=== PATIENT | female | born 1975 | race Hispanic/Latino ===

== ENCOUNTER 2017-01-31 13:05 | Emergency (ER) | payer OTHER, SELFPAY ==
[2017-01-31 13:33] LABS: #Eosinphils 0.1 thou/uL (0.0-0.7); #Lymphocytes 2.3 thou/uL (1.20-3.40); #Monocytes 0.5 thou/uL (0.11-0.59); #Neutrophils 8.3 thou/uL (1.40-6.50); %Basophils 0.4 % (0.0-1.0); %Eosinophils 1.1 % (0.0-10.0); %Lymphocytes 20.5 % (21.0-51.0); %Monocytes 4.6 % (0.0-10.0); %Neutrophils 73.4 % (42.0-75.0); Hemoglobin 12.4 g/dL (12.0-16.0); Mean Corpuscular HGB CONC 32.8 g/dL (32.0-36.0); Mean Corpuscular Hemoglobin 28.2 pg (27.0-31.0); Mean Corpuscular Volume 85.8 fl (81.0-99.0); Mean Platelet Volume 8.1 fL (7.4-10.4); Platelet Count 358 thou/uL (130-400); RBC Distribution Width 12.5 % (11.5-14.5); White Blood Cell (WBC) Count 11.4 thou/uL (4.8-10.8)
[2017-01-31] MEDS ORDERED: Labetalol HCl 100 MG/20 ML VIAL ONE (13:35)
[2017-01-31 13:50] LABS: ALT (SGPT) 23 U/L (8-55); AST (SGOT) 19 U/L (5-34); Albumin 3.7 g/dL (3.5-5.0); Alkaline Phosphatase 102 U/L (40-150); Anion Gap 13 mmol/L (10-20); BUN (Urea Nitrogen) 8 mg/dL (7.0-18.7); Bilirubin, Total 0.8 mg/dL (0.2-1.2); Calc. Creatinine Clearance 0 mL/min (70-130); Calcium 8.7 mg/dL (7.8-10.44); Carbon Dioxide 23 mmol/L (22-29); Chloride 105 mmol/L (98-107); Estimated GFR-MDRD 88; Globulin 3.6 g/dL (2.4-3.5); Glucose 166 mg/dL (70-105); Potassium 3.6 mmol/L (3.5-5.1); Protein, Total 7.3 g/dL (6.0-8.3); Sodium 137 mmol/L (136-145)
[2017-01-31 13:51] LABS: CKMB 0.7 ng/mL (0-6.6); Troponin I Less than 0.010 ng/mL (< 0.028)
[2017-01-31] MEDS ORDERED: Ketorolac Tromethamine 30 MG/ML VIAL ONE (14:30)
--- NOTE | 2017-01-31 17:40 | CT ---
CT OF THE BRAIN WITHOUT CONTRAST 01/31/17 A noncontrast study was performed. There is streak artifact throughout the lower half of the images that degrades the quality somewhat. This may be motion artifact. The ventricles are normal in size with no shift. No intracranial bleeding or extra-axial hematoma wa s seen. There was no sign of mass, edema, or stroke. The calvarium appears normal. The visible paran sangeeta sinuses and mastoid air cells are clear. IMPRESSION: Slightly reduced sensitivity study showing no acute findings. POS: HOME
--- NOTE | 2017-01-31 17:44 | RAD ---
PORTABLE CHEST 01/31/17 An AP portable film at 1323 is compared with a 01/18/15 study done at [facility]. There has been no adverse interval change. The heart is normal in size and the lungs are clear. No i nfiltrate or effusion was seen. There are no congestive changes. The trachea is midline. IMPRESSION: No acute thoracic findings. POS: HOME
--- NOTE | 2017-01-31 17:49 | CT ---
CT ANGIO OF THE CHEST 01/31/17 A bolus of IV contrast was given and axial slices were acquired. A series of reformations were done through the arteries afterwards. Unfortunately, the timing of the bolus was suboptimal. Most of the bolus is in the left circulation and so the pulmonary arteries were not well opacified. There is no gross clot in the proximal most portions of the right and left pulmonary artery or the m ain pulmonary artery. Much beyond this, the contrast column becomes too dilute and the study becomes indeterminate. There is no sign of aortic aneurysm or dissection. The coronary arteries are filling and do not appear to have substantial calcification. There is no sign of pericardial fluid. No medi astinal mass or hematoma was seen. The lungs are clear. No nodules, infiltrates, or effusions were seen. Scans into the upper abdomen show some prominence to the size of the patient's liver. It is somewhat low in density which could signify fatty infiltration. The spleen is normal in size. The visible po rtions of the pancreas were normal. There is no evidence of adrenal mass. IMPRESSION: 1. Indeterminate study for pulmonary embolism. 2. No acute thoracic findings. 3. Mildly prominent hepatic size and possibly fatty infiltration. POS: HOME
== END 2017-01-31 15:40 | disposition home or self-care (01) ==
LOC: BURERS 13:05
DX: F41.9 Anxiety disorder, unspecified (principal); I10 Essential (primary) hypertension
CPT/HCPCS: 70450; 71010; 71275; 80053; 82553; 84484; 85025; 85379; 93005; 94760; 96374; 96375; J1885

== ENCOUNTER 2019-06-24 10:48 | Emergency (ER) | payer SELFPAY ==
[2019-06-24 11:24] LABS: Hemoglobin 11.6 g/dL (12.0-16.0); Mean Corpuscular HGB CONC 30.4 g/dL (32.0-36.0); Mean Corpuscular Hemoglobin 24.6 pg (27.0-31.0); Mean Platelet Volume 8.2 fL (7.4-10.4); Platelet Count 423 thou/uL (130-400); RBC Distribution Width 13.9 % (11.5-14.5); Red Blood Cell (RBC) Count 4.71 mill/uL (4.20-5.40); White Blood Cell (WBC) Count 10.8 thou/uL (4.8-10.8)
[2019-06-24] MEDS ORDERED: Aspirin Chewable 81 MG TAB ONE (11:37)
[2019-06-24] MEDS ORDERED: Lisinopril 20 MG TAB ONE (11:37)
[2019-06-24 11:39] LABS: ALT (SGPT) 17 U/L (8-55); AST (SGOT) 18 U/L (5-34); Albumin 4.1 g/dL (3.5-5.0); Alkaline Phosphatase 129 U/L (40-110); Anion Gap 13 mmol/L (10-20); BUN (Urea Nitrogen) 9 mg/dL (7.0-18.7); Bilirubin, Total 0.5 mg/dL (0.2-1.2); Calc. Creatinine Clearance 0 mL/min (70-130); Calcium 9.4 mg/dL (7.8-10.44); Carbon Dioxide 25 mmol/L (22-29); Chloride 104 mmol/L (98-107); Estimated GFR-MDRD 88; Globulin 4.1 g/dL (2.4-3.5); Glucose 147 mg/dL (70-105); Potassium 3.9 mmol/L (3.5-5.1); Protein, Total 8.2 g/dL (6.0-8.3); Sodium 138 mmol/L (136-145)
[2019-06-24 11:48] LABS: #Eosinphils 0.1 thou/uL (0.0-0.7); #Lymphocytes 2.5 thou/uL (1.20-3.40); #Monocytes 0.7 thou/uL (0.11-0.59); #Neutrophils 7.5 thou/uL (1.40-6.50); %Basophils 0.4 % (0.0-1.0); %Eosinophils 1.3 % (0.0-10.0); %Lymphocytes 22.8 % (21.0-51.0); %Monocytes 6.1 % (0.0-10.0); %Neutrophils 69.3 % (42.0-75.0); Hypochromia SLIGHT = 6-15 cells (100X) (0-5/hpf); MDiff Complete? YES
[2019-06-24 12:02] LABS: Bilirubin Negative (Negative); Blood, Urine Large (Negative); Clarity Turbid (Clear); Glucose, Urine (Dipstick) Negative (Negative); Leukocyte Small (Negative); Nitrite Positive (Negative); Protein, Urine (Dipstick) 100 mg/dL (Neg-Trace)
[2019-06-24 12:08] LABS: Bacteria/HPF 4+ HPF (None Seen); WBC/HPF 21-50 HPF (0-3)
--- NOTE | 2019-06-24 17:23 | CT ---
CT OF THE BRAIN WITHOUT CONTRAST: 06/24/19 Comparison is made with a 01/31/17 study. The heart is normal in size and the lungs are clear. No infiltrate or effusion was seen. The paranasa l sinuses and mastoid air cells are clear. IMPRESSION: No acute intracranial findings. POS: HOME
--- NOTE | 2019-06-24 17:24 | RAD ---
PORTABLE CHEST: 06/24/19 An AP portable film at 1116 is compared with a 01/31/17 exam. The heart is borderline in size. The lungs are clear. There is no vascular congestion or edema. IMPRESSION: No acute thoracic finding. POS: HOME
== END 2019-06-24 12:00 | disposition home or self-care (01) ==
LOC: BURERS 10:48
DX: H53.452 Other localized visual field defect, left eye (principal); I10 Essential (primary) hypertension; N39.0 Urinary tract infection, site not specified
CPT/HCPCS: 70450; 71045; 80053; 81003; 81015; 83880; 84443; 84484; 85025; 87077; 87086; 87186; 93005; 94760

== ENCOUNTER 2023-12-10 12:35 | Emergency (ER) | payer OTHER, SELFPAY ==
[2023-12-10 13:02] LABS: #Eosinphils 0.1 thou/uL (0.0-0.7); #Lymphocytes 2.3 thou/uL (1.20-3.40); #Monocytes 0.6 thou/uL (0.11-0.59); #Neutrophils 6.1 thou/uL (1.40-6.50); %Basophils 0.5 % (0.0-1.0); %Eosinophils 1.1 % (0.0-10.0); %Lymphocytes 25.4 % (21.0-51.0); %Monocytes 6.3 % (0.0-10.0); %Neutrophils 66.6 % (42.0-75.0); Hematocrit 36.8 % (36.0-47.0); Hemoglobin 11.6 g/dL (12.0-16.0); Mean Corpuscular HGB CONC 31.6 g/dL (32.0-36.0); Mean Corpuscular Hemoglobin 25.5 pg (27.0-31.0); Mean Corpuscular Volume 80.8 fl (78.0-98.0); Mean Platelet Volume 8.1 fL (7.4-10.4); Platelet Count 366 10x3/uL (130-400); RBC Distribution Width 14.4 % (11.5-14.5); Red Blood Cell (RBC) Count 4.56 mill/uL (4.20-5.40); White Blood Cell (WBC) Count 9.2 10x3/uL (4.8-10.8)
[2023-12-10 13:20] LABS: ALT (SGPT) 11 U/L (8-55); AST (SGOT) 12 U/L (5-34); Albumin 3.8 g/dL (3.5-5.0); Alkaline Phosphatase 148 U/L (40-110); Anion Gap 13 mmol/L (10-20); BUN (Urea Nitrogen) 9 mg/dL (7.0-18.7); Bilirubin, Total 0.5 mg/dL (0.2-1.2); Calc. Creatinine Clearance 0 mL/min (70-130); Calcium 9.2 mg/dL (7.8-10.44); Carbon Dioxide 24 mmol/L (22-29); Chloride 104 mmol/L (98-107); Estimated GFR 76; Globulin 3.6 g/dL (2.4-3.5); Glucose 126 mg/dL (70-105); Potassium 3.6 mmol/L (3.5-5.1); Protein, Total 7.4 g/dL (6.0-8.3); Sodium 137 mmol/L (136-145)
[2023-12-10 13:21] LABS: Troponin I Less than 0.010 ng/mL (< 0.028)
[2023-12-10 14:11] LABS: Bilirubin Negative (Negative); Blood, Urine Trace (Negative); Glucose, Urine (Dipstick) Negative (Negative); Ketone, Urine Negative (Negative); Leukocyte Trace (Negative); Nitrite Negative (Negative); Protein, Urine (Dipstick) 30 mg/dL (Neg-Trace); pH, Urine 7.5 (5.0-9.0)
[2023-12-10 14:12] LABS: Clarity Hazy (Clear)
[2023-12-10 14:21] LABS: Bacteria/HPF 2+ HPF (None Seen); CAUTI Indications for Culture Dysuria,urgency,freq; Trichomonas/HPF 2+ HPF (None Seen)
[2023-12-10 14:23] LABS: Urine Culture Reflex No No
[2023-12-10] MEDS ORDERED: Acetaminophen 500 MG TAB ONE (14:25)
== END 2023-12-10 15:17 | disposition home or self-care (01) ==
LOC: BURERS 12:35
DX: I10 Essential (primary) hypertension (principal); A59.9 Trichomoniasis, unspecified
CPT/HCPCS: 70450; 80053; 81001; 84484; 85025; 93005